=== PATIENT | female | born 1965 | race Caucasian/White ===

== ENCOUNTER → 2024-01-01 | Outpatient (CLI) | payer OTHER | END | disposition home or self-care (01) | LOC: RESCLI 15:37 | PROVIDERS: ATTEND Internal Medicine | DX: E78.1 Pure hyperglyceridemia (principal); M35.00 Sjogren syndrome, unspecified; N95.2 Postmenopausal atrophic vaginitis; I10 Essential (primary) hypertension; K21.9 Gastro-esophageal reflux disease without esophagitis; M19.90 Unspecified osteoarthritis, unspecified site; F32.9 Major depressive disorder, single episode, unspecified; F41.1 Generalized anxiety disorder; Z90.710 Acquired absence of both cervix and uterus; Z79.899 Other long term (current) drug therapy ==

== ENCOUNTER → 2024-12-26 | Outpatient (CLI) | payer OTHER | END | disposition home or self-care (01) | LOC: RESCLI 01:51 | PROVIDERS: ATTEND Internal Medicine | DX: M35.00 Sjogren syndrome, unspecified (principal); M19.90 Unspecified osteoarthritis, unspecified site; K21.9 Gastro-esophageal reflux disease without esophagitis; H16.223 Keratoconjunctivitis sicca, not specified as Sjogren's, bilateral; I73.00 Raynaud's syndrome without gangrene; I10 Essential (primary) hypertension; E78.1 Pure hyperglyceridemia; F41.1 Generalized anxiety disorder; F32.9 Major depressive disorder, single episode, unspecified; N95.2 Postmenopausal atrophic vaginitis; Z79.899 Other long term (current) drug therapy; Z98.890 Other specified postprocedural states ==